=== PATIENT | male | born 1990 | race Caucasian/White ===

== ENCOUNTER 2017-06-20 08:01 | Emergency (ER) | payer SELFPAY ==
[~2017-06-20] VITALS: Ht 182.8 cm; Wt 74.8 kg
[~2017-06-20 08:01] MED LIST: KEFLEX500 MG PO; MOTRIN800 MG PO; NKHM
[2017-06-20 08:33] LABS: BASO # 0.1 10*3/uL (0.0-0.1); BASO % 0.8 % (0.0-1.0); EOS # 0.1 10*3/uL (0.0-0.4); EOS % 0.7 % (1.0-4.0); HEMATOCRIT 44.6 % (42.0-52.0); HEMOGLOBIN 15.2 g/dl (14.0-18.0); LYMPH # 1.5 10*3/uL (1.3-4.4); LYMPH % 10.5 % (27.0-41.0); MEAN CELL VOLUME 90.3 fl (80.0-94.0); MEAN CORPUSCULAR HGB 30.8 pg (27.0-31.0); MEAN CORPUSCULAR HGB CONC 34.1 g/dl (33.0-37.0); MEAN PLATELET VOLUME 10.1 fl (9.6-12.3); MONO # 0.9 10*3/uL (0.1-1.0); MONO % 6.4 % (3.0-9.0); NEUT # 11.7 10*3/uL (2.3-7.9); NEUT % 81.1 % (47.0-73.0); PLATELET COUNT AUTOMATED 230 10*3/uL (130-400); RED BLOOD COUNT 4.94 10*6/uL (4.50-5.90); RED CELL DISTRI WIDTH 12.6 % (0-14.5); WHITE BLOOD COUNT 14.4 10*3/uL (4.8-10.8)
[2017-06-20 08:44] LABS: BILIRUBIN NEGATIVE (NEGATIVE); BLOOD 3+ (NEGATIVE); CLARITY SL CLOUDY (CLEAR); COLOR YELLOW (YELLOW); GLUCOSE NEGATIVE (NEGATIVE); KETONE NEGATIVE (NEGATIVE); LEUKO ESTERASE NEGATIVE (NEGATIVE); NITRITE NEGATIVE (NEGATIVE); PH 5.5 (5.0-9.0); SPECIFIC GRAVITY 1.025 (1.005-1.030); UROBILINOGEN 0.2 E.U./dl (0.2-1.0)
[2017-06-20 08:47] LABS: ALBUMIN 4.4 gm/dl (3.1-4.5); ALKALINE PHOSPHATASE 63 U/L (45-117); BUN 12 mg/dl (7-24); CHLORIDE 103 mmol/L (98-107); CREATININE 1.23 mg/dL (0.70-1.30); POTASSIUM 3.8 mmol/L (3.5-5.1); SGOT/AST 23 IU/L (3-35); SGPT/ALT 38 U/L (12-78); SODIUM 139 mmol/L (136-145); TOTAL PROTEIN 7.9 gm/dL (6.4-8.2)
[2017-06-20 08:54] LABS: RBC TNTC rbc/hpf (0-2)
== END 2017-06-20 09:54 | disposition home or self-care (01) ==
LOC: ED 08:01
PROVIDERS: Student in an Organized Health Care Education/Training Program
DX: N23 Unspecified renal colic (principal); R31.9 Hematuria, unspecified; F17.200 Nicotine dependence, unspecified, uncomplicated; Z87.01 Personal history of pneumonia (recurrent)

== ENCOUNTER 2017-06-30 21:08 | Emergency (ER) | payer SELFPAY ==
[~2017-06-30] VITALS: Ht 182.8 cm; Wt 77.1 kg
[2017-06-30 21:42] LABS: BILIRUBIN 1+ (NEGATIVE); BLOOD 2+ (NEGATIVE); CLARITY SL CLOUDY (CLEAR); COLOR YELLOW (YELLOW); GLUCOSE NEGATIVE (NEGATIVE); KETONE TRACE (NEGATIVE); LEUKO ESTERASE NEGATIVE (NEGATIVE); NITRITE NEGATIVE (NEGATIVE); PH 5.5 (5.0-9.0); SPECIFIC GRAVITY >= 1.030 (1.005-1.030); UROBILINOGEN 0.2 E.U./dl (0.2-1.0)
[2017-06-30 21:47] LABS: BACTERIA TRACE; CALCIUM OXALATE CRYSTALS 2+; MUCOUS 2+
[2017-06-30 21:48] LABS: EPITHELIAL CELLS 0-2; RBC 16-20 rbc/hpf (0-2); WBC 0-2 wbc/hpf (0-5)
[2017-06-30] MEDS ORDERED: FLOMAX0.4 MG PO (22:47)
[2017-06-30] MEDS ORDERED: NORCO 5-325 TA1 EACH PO (22:47)
== END 2017-06-30 22:50 | disposition home or self-care (01) ==
LOC: ED 21:08
PROVIDERS: Physician Assistant
DX: N23 Unspecified renal colic (principal); F17.200 Nicotine dependence, unspecified, uncomplicated

== ENCOUNTER 2017-08-28 10:04 | Emergency (ER) | payer SELFPAY ==
[~2017-08-28] VITALS: Ht 182.8 cm; Wt 79.4 kg
[~2017-08-28 10:04] MED LIST changes: +FLOMAX0.4 MG PO; +NORCO 5-325 TA1 EACH PO
[2017-08-28] MEDS ORDERED: ZOFRAN ODT4 MG SL (10:31)
== END 2017-08-28 10:38 | disposition home or self-care (01) ==
LOC: ED 10:04
DX: A08.4 Viral intestinal infection, unspecified (principal); F17.200 Nicotine dependence, unspecified, uncomplicated

== ENCOUNTER 2020-12-15 11:59 | Emergency (ER) | payer SELFPAY ==
[~2020-12-15] VITALS: Wt 72.6 kg
[~2020-12-15 11:59] MED LIST changes: +ZOFRAN ODT4 MG SL
[2020-12-15] MEDS ORDERED: ZYRTEC10 M2 PO (12:15)
[2020-12-15] MEDS ORDERED: FLONASE ALLERG9.9 ML NAS (12:15)
== END 2020-12-15 12:48 | disposition home or self-care (01) ==
LOC: ED 11:59
DX: J34.89 Other specified disorders of nose and nasal sinuses (principal); Z79.899 Other long term (current) drug therapy

== ENCOUNTER 2020-12-22 12:42 | Emergency (ER) | payer SELFPAY ==
[~2020-12-22] VITALS: Ht 175.2 cm; Wt 68.0 kg
[~2020-12-22 12:42] MED LIST changes: +FLONASE ALLERG9.9 ML NAS; +ZYRTEC10 M2 PO
== END 2020-12-22 15:17 | disposition home or self-care (01) ==
LOC: ED 12:42
DX: S90.122A Contusion of left lesser toe(s) without damage to nail, initial encounter (principal); Z79.899 Other long term (current) drug therapy; W22.8XXA Striking against or struck by other objects, initial encounter; Y93.01 Activity, walking, marching and hiking; Y92.89 Other specified places as the place of occurrence of the external cause; Y99.9 Unspecified external cause status

== ENCOUNTER 2021-02-17 19:47 | Emergency (ER) | payer SELFPAY ==
[~2021-02-17] VITALS: Ht 182.8 cm; Wt 81.6 kg
[2021-02-18] MEDS ORDERED: Motrin,Rufen800 MG PO (16:35)
[2021-02-18] MEDS ORDERED: AMOXICILLIN500 M2 PO (16:35)
== END 2021-02-17 23:29 | disposition left against medical advice (07) ==
LOC: ED 19:47
DX: H92.01 Otalgia, right ear (principal); Z53.21 Procedure and treatment not carried out due to patient leaving prior to being seen by health care provider

== ENCOUNTER 2021-02-18 14:49 | Emergency (ER) | payer SELFPAY ==
[~2021-02-18] VITALS: Ht 180.3 cm; Wt 74.8 kg
[2021-02-18] MEDS ORDERED: AMOXICILLIN500 M2 PO (16:35)
[2021-02-18] MEDS ORDERED: Motrin,Rufen800 MG PO (16:35)
== END 2021-02-18 16:37 | disposition home or self-care (01) ==
LOC: ED 14:49
DX: H66.91 Otitis media, unspecified, right ear (principal)

== ENCOUNTER 2021-06-02 12:32 | Emergency (ER) | payer SELFPAY ==
[~2021-06-02] VITALS: Ht 180.3 cm; Wt 72.6 kg
[~2021-06-02 12:32] MED LIST changes: +AMOXICILLIN500 M2 PO; +Motrin,Rufen800 MG PO
[2021-06-02] MEDS ORDERED: AMOXICILLIN500 M2 PO (12:52)
== END 2021-06-02 13:05 | disposition home or self-care (01) ==
LOC: ED 12:32
DX: H66.91 Otitis media, unspecified, right ear (principal)

== ENCOUNTER 2021-11-02 07:45 | Emergency (ER) | payer SELFPAY ==
[~2021-11-02] VITALS: Wt 77.1 kg
[2021-11-02] MEDS ORDERED: ZITHROMAX250 MG PO (10:12)
== END 2021-11-02 10:17 | disposition home or self-care (01) ==
LOC: ED 07:45
DX: J06.9 Acute upper respiratory infection, unspecified (principal); F17.200 Nicotine dependence, unspecified, uncomplicated

== ENCOUNTER 2021-12-15 14:00 | Emergency (ER) | payer SELFPAY ==
[~2021-12-15] VITALS: Ht 180.3 cm; Wt 117.9 kg
[~2021-12-15 14:00] MED LIST changes: +ZITHROMAX250 MG PO
[2021-12-15] MEDS ORDERED: IBU800 M2 PO (15:56)
[2021-12-15] MEDS ORDERED: AUGMENTIN 875-875 MG PO (15:56)
== END 2021-12-15 16:14 | disposition home or self-care (01) ==
LOC: ED 14:00
DX: S02.5XXA Fracture of tooth (traumatic), initial encounter for closed fracture (principal); K02.9 Dental caries, unspecified; Z79.2 Long term (current) use of antibiotics; X58.XXXA Exposure to other specified factors, initial encounter; Y93.89 Activity, other specified; Y92.89 Other specified places as the place of occurrence of the external cause; Y99.9 Unspecified external cause status

== ENCOUNTER 2022-04-11 12:20 | Emergency (ER) | payer MEDICAID ==
[~2022-04-11 12:20] MED LIST changes: +AUGMENTIN 875-875 MG PO; +IBU800 M2 PO
[2022-04-11] MEDS ORDERED: AMOXICILLIN500 M2 PO ×2 (12:45)
== END 2022-04-11 12:56 | disposition home or self-care (01) ==
LOC: ED 12:20
DX: K04.7 Periapical abscess without sinus (principal)

== ENCOUNTER 2022-04-13 11:05 | Emergency (ER) | payer OTHER ==
[~2022-04-13] VITALS: Ht 182.8 cm; Wt 78.5 kg
== END 2022-04-13 11:57 | disposition home or self-care (01) ==
LOC: ED 11:05
DX: K02.9 Dental caries, unspecified (principal); Z79.2 Long term (current) use of antibiotics

== ENCOUNTER 2022-04-19 10:31 | Emergency (ER) | payer OTHER ==
[~2022-04-19] VITALS: Wt 77.1 kg
== END 2022-04-19 11:40 ==
LOC: ED 10:31
DX: H61.22 Impacted cerumen, left ear (principal)

== ENCOUNTER 2022-05-11 12:08 | Emergency (ER) | payer OTHER ==
[~2022-05-11] VITALS: Ht 182.8 cm; Wt 77.1 kg
== END 2022-05-11 13:45 | disposition home or self-care (01) ==
LOC: ED 12:08
DX: J06.9 Acute upper respiratory infection, unspecified (principal); Z20.822 Contact with and (suspected) exposure to COVID-19; F17.200 Nicotine dependence, unspecified, uncomplicated

== ENCOUNTER 2022-05-29 13:00 | Emergency (ER) | payer OTHER | END 2022-05-29 15:20 | disposition left against medical advice (07) | LOC: ED 13:00 | DX: Z53.21 Procedure and treatment not carried out due to patient leaving prior to being seen by health care provider (principal) ==

== ENCOUNTER 2022-06-08 12:31 | Emergency (ER) | payer OTHER ==
[~2022-06-08] VITALS: Ht 180.3 cm; Wt 79.4 kg
== END 2022-06-08 13:58 | disposition left against medical advice (07) ==
LOC: ED 12:31
DX: J98.9 Respiratory disorder, unspecified (principal); Z20.822 Contact with and (suspected) exposure to COVID-19; F17.200 Nicotine dependence, unspecified, uncomplicated

== ENCOUNTER 2022-07-19 10:28 | Emergency (ER) | payer OTHER ==
[~2022-07-19] VITALS: Ht 180.3 cm; Wt 79.4 kg
[2022-07-19] MEDS ORDERED: AMOXICILLIN500 M3 PO (11:05)
[2022-07-19] MEDS ORDERED: TYLENOL EXTRA500 MG PO (11:05)
== END 2022-07-19 11:19 | disposition home or self-care (01) ==
LOC: ED 10:28
DX: K04.7 Periapical abscess without sinus (principal); F10.90 Alcohol use, unspecified, uncomplicated

== ENCOUNTER 2022-07-21 10:26 | Emergency (ER) | payer OTHER ==
[~2022-07-21] VITALS: Ht 180.3 cm; Wt 79.4 kg
[~2022-07-21 10:26] MED LIST changes: +AMOXICILLIN500 M3 PO; +TYLENOL EXTRA500 MG PO
== END 2022-07-21 11:47 | disposition home or self-care (01) ==
LOC: ED 10:26
DX: S60.551A Superficial foreign body of right hand, initial encounter (principal); F17.200 Nicotine dependence, unspecified, uncomplicated; X58.XXXA Exposure to other specified factors, initial encounter; Y93.89 Activity, other specified; Y92.89 Other specified places as the place of occurrence of the external cause; Y99.8 Other external cause status

== ENCOUNTER 2022-07-28 12:21 | Emergency (ER) | payer OTHER ==
[~2022-07-28] VITALS: Ht 180.3 cm; Wt 79.4 kg
[2022-07-28] MEDS ORDERED: CETIRIZINE10 MG PO (12:57)
== END 2022-07-28 12:59 | disposition home or self-care (01) ==
LOC: ED 12:21
DX: H92.01 Otalgia, right ear (principal); F10.90 Alcohol use, unspecified, uncomplicated

== ENCOUNTER 2022-11-13 20:26 | Emergency (ER) | payer OTHER ==
[~2022-11-13 20:26] MED LIST changes: +CETIRIZINE10 MG PO
== END 2022-11-13 22:09 | disposition left against medical advice (07) ==
LOC: ED 20:26
DX: K08.89 Other specified disorders of teeth and supporting structures (principal); Z53.21 Procedure and treatment not carried out due to patient leaving prior to being seen by health care provider

== ENCOUNTER 2023-01-21 19:28 | Emergency (ER) | payer OTHER | END 2023-01-21 21:37 | disposition left against medical advice (07) | LOC: ED 19:28 | DX: S69.90XA Unspecified injury of unspecified wrist, hand and finger(s), initial encounter (principal); Z53.21 Procedure and treatment not carried out due to patient leaving prior to being seen by health care provider; X58.XXXA Exposure to other specified factors, initial encounter; Y93.89 Activity, other specified; Y92.89 Other specified places as the place of occurrence of the external cause; Y99.8 Other external cause status ==

== ENCOUNTER → 2023-01-29 | Outpatient (CLI) | payer OTHER | END | disposition home or self-care (01) | LOC: ORTHO 10:24 | PROVIDERS: ATTEND Orthopaedic Surgery | DX: S62.316A Displaced fracture of base of fifth metacarpal bone, right hand, initial encounter for closed fracture (principal); M79.89 Other specified soft tissue disorders; X58.XXXA Exposure to other specified factors, initial encounter; Y93.89 Activity, other specified; Y92.89 Other specified places as the place of occurrence of the external cause; Y99.8 Other external cause status ==

== ENCOUNTER 2024-03-16 22:02 | Emergency (ER) | payer OTHER ==
[~2024-03-16] VITALS: Ht 180.3 cm; Wt 81.6 kg
[2024-03-16] MEDS ORDERED: POLYTRIM 1000010 ML OPH (22:43)
[2024-03-16] MEDS ORDERED: Polymyxin B Sulfate/Trimetho 10 ML BOT OPH ONE (22:45)
== END 2024-03-16 22:50 | disposition home or self-care (01) ==
LOC: ED 22:02
DX: H10.9 Unspecified conjunctivitis (principal); J45.909 Unspecified asthma, uncomplicated; Z87.442 Personal history of urinary calculi

== ENCOUNTER 2024-05-25 20:09 | Emergency (ER) | payer OTHER ==
[~2024-05-25] VITALS: Wt 83.9 kg
[~2024-05-25 20:09] MED LIST changes: +POLYTRIM 1000010 ML OPH
[2024-05-25] MEDS ORDERED: AMOX-CLAV 875-1 EACH PO (20:27)
== END 2024-05-25 20:35 | disposition home or self-care (01) ==
LOC: ED 20:09
DX: H66.91 Otitis media, unspecified, right ear (principal)

== ENCOUNTER 2024-06-09 21:16 | Emergency (ER) | payer OTHER ==
[~2024-06-09] VITALS: Ht 182.8 cm; Wt 83.9 kg
[~2024-06-09 21:16] MED LIST changes: +AMOX-CLAV 875-1 EACH PO
[2024-06-09] MEDS ORDERED: CYCLOBENZAPRINE5 M3 PO (21:40)
[2024-06-09] MEDS ORDERED: Ketorolac Tromethamine 30 MG/ML VIAL IM ONE (21:40)
[2024-06-09] MEDS ORDERED: methylPREDNISolone sod succ 125 MG VIAL IM ONE (21:40)
== END 2024-06-09 22:09 | disposition home or self-care (01) ==
LOC: ED 21:16
DX: S39.012A Strain of muscle, fascia and tendon of lower back, initial encounter (principal); J45.909 Unspecified asthma, uncomplicated; Z87.442 Personal history of urinary calculi; X50.0XXA Overexertion from strenuous movement or load, initial encounter; Y93.89 Activity, other specified; Y92.89 Other specified places as the place of occurrence of the external cause; Y99.0 Civilian activity done for income or pay

== ENCOUNTER 2024-08-05 16:37 | Emergency (ER) | payer OTHER ==
[~2024-08-05] VITALS: Ht 180.3 cm; Wt 83.9 kg
[~2024-08-05 16:37] MED LIST changes: +CYCLOBENZAPRINE5 M3 PO
[2024-08-05] MEDS ORDERED: Lidocaine Hydrochloride 2% 10 ML AMP SC ONE (19:35)
[2024-08-05] MEDS ORDERED: Bacitracin Zinc 14 GM TUBE T ONE (19:35)
[2024-08-05] MEDS ORDERED: Tdap Vaccine 0.5 ML SYR (Adult Vaccine) IM ONE (20:20)
[2024-08-05] MEDS ORDERED: CEPHALEXIN500 M1 PO (20:40)
== END 2024-08-05 20:53 | disposition home or self-care (01) ==
LOC: ED 16:37
DX: S61.211A Laceration without foreign body of left index finger without damage to nail, initial encounter (principal); J45.909 Unspecified asthma, uncomplicated; Z87.442 Personal history of urinary calculi; Z98.890 Other specified postprocedural states; W26.8XXA Contact with other sharp object(s), not elsewhere classified, initial encounter; Y93.89 Activity, other specified; Y92.89 Other specified places as the place of occurrence of the external cause; Y99.8 Other external cause status